=== PATIENT | male | born 2000 | race Caucasian/White ===

== ENCOUNTER 2024-02-04 19:15 | Emergency (ER) | payer OTHER ==
[~2024-02-04] VITALS: Ht 172.7 cm; Wt 68.0 kg
[2024-02-04 21:04] VITALS: BP 117/78; TEMP 98.3; O2SAT 98
== END 2024-02-04 21:09 | disposition home or self-care (01) ==
LOC: ER 19:18
DX: S92.354A Nondisplaced fracture of fifth metatarsal bone, right foot, initial encounter for closed fracture (principal); X50.1XXA Overexertion from prolonged static or awkward postures, initial encounter; Y93.67 Activity, basketball; Y92.39 Other specified sports and athletic area as the place of occurrence of the external cause; Y99.8 Other external cause status
CPT/HCPCS: 73610-TC; 73630-TC